=== PATIENT | female | born 1950 ===

== ENCOUNTER 2017-06-24 06:07 | Day surgery (SDC) | payer BC ==
[2017-06-20 18:25] VITALS: BMI 36.7
[2017-06-24] MEDS ORDERED: Lactated Ringer's 1,000 ML IV ONE (07:15)
[2017-06-24] MEDS ORDERED: Propofol 10 mg/ml Inj (20 ML) ONE (07:42)
[2017-06-24] MEDS ORDERED: Midazolam 2 MG/2 ML VIAL ONE (07:42)
[2017-06-24] MEDS ORDERED: Succinylcholine 200 mg/10 ml Inj IV ONE (07:45)
[2017-06-24] MEDS ORDERED: ceFAZolin IV 1 gm in Dextrose 2 GM/100 ML BAG IVPB ONE (07:49)
[2017-06-24] MEDS ORDERED: Lidocaine 1% Inj (20ml) ONE ×2 (07:49→08:17)
[2017-06-24] MEDS ORDERED: Bacitracin Ointment 30 GM TUBE ONE (07:50)
[2017-06-24] MEDS ORDERED: Lidocaine 1% Inj (20ml) IJ ONE (08:10)
[2017-06-24] MEDS ORDERED: MethylPREDNISolone Depo 40 mg/ml Inj ONE (08:16)
[2017-06-24] MEDS ORDERED: methylPREDNISolone Depo 80 mg/ml Inj ONE (08:39)
[2017-06-24] MEDS ORDERED: Bupivacaine 0.5% Inj(30mL) ONE (08:39)
[2017-06-24] MEDS ORDERED: Bupivacaine 0.5% Inj(30mL) IJ ONE (08:48)
[2017-06-24] MEDS ORDERED: methylPREDNISolone Depo 80 mg/ml Inj IM ONE (08:48)
[2017-06-24] MEDS ORDERED: Sodium Chloride 0.9% 500 ML IV ONE (08:55)
--- NOTE | 2017-06-24 09:07 | PCM.SURG1 ---
Surgeon's Initial Post Op Note - Surgeon's Notes Surgeon: Kashmir Louis MD Glove Tagger: Aneudy Calvert PA-C Type of Anesthesia: General LMA Pre-Operative Diagnosis: Right knee meniscus tear Operative Findings: see op report Post-Operative Diagnosis: Same as pre-op dx Operation Performed: Right knee arthroscopy, partial medial and lateral meniscectomy, synovectomy Specimen/Specimens Removed: none Estimated Blood Loss: EBL {In ML}: 3 Date of Surgery/Procedure: 06/24/17 Time of Surgery/Procedure: 08:00
[2017-06-24] MEDS ORDERED: Oxycodone/Acetaminophen 5/325 mg Tab PO PRN (09:08)
[2017-06-24] MEDS ORDERED: HYDROmorphone 0.5 mg/0.5 ml ISec IVP PRN (09:25)
[2017-06-24] MEDS ORDERED: Lactated Ringer's 1,000 ML IV SCH (09:30)
[2017-06-24] MEDS ORDERED: Dexamethasone 4 mg/1 ml IVP PRN (09:35)
[2017-06-24 10:42] VITALS: RESP 18
[2017-06-24 12:55] VITALS: TEMP 97.8
[2017-06-24 16:15] VITALS: BP 110/70; PULSE 78; O2SAT 97
--- NOTE | 2017-06-24 20:18 | OP ---
PROCEDURE DATE: 06/24/2017 ATTENDING PHYSICIAN: Kashmir Louis MD XEROX MACHINE ASSEMBLER: Aneudy Calvert PA-C. PREOPERATIVE DIAGNOSES: 1. Right knee displaced lateral meniscal tear. 2. Synovitis. 3. Chondral injury. POSTOPERATIVE DIAGNOSES: 1. Right knee major synovitis, all three compartments. 2. Tear of the posterior horn of medial meniscus. 3. Tear of the body, anterior horn, and posterior horn of lateral meniscus. 4. Anterior patellofemoral adhesions. 5. 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 6. Grade III chondromalacia of the patella. 7. 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 PROCEDURES: 1. Right partial medial and lateral meniscectomy. 2. Major synovectomy of all three compartments. 3. Chondroplasty of the patella, lateral tibial plateau, lateral femoral condyle. 4. Anterior lysis of adhesions. 5. Injection of the large joint. TYPE OF ANESTHESIA: General. ESTIMATED BLOOD LOSS: 5 mL. SPECIMEN: None. COMPLICATIONS: None. INDICATIONS: After failing a course of nonoperative therapy, the patient elected to undergo the above procedure. In the office, the risks and possible complications of knee arthroscopy were discussed in detail with the patient. These risks include but are not limited to continued pain, lack of motion, infection, vascular injury, DVT / PE, nerve injury including peroneal nerve dysfunction, reflex sympathetic dystrophy, compartment syndrome, unforeseen medical and/or anesthesia complications, limb loss, and even . The patient expressed an understanding of the risks and possible benefits of the procedure, and is also aware of the alternatives to surgery. An informed consent was obtained, and was checked immediately preop. PROCEDURE: The patient was correctly identified in the holding area and the right knee was marked with the surgeon's initials. The patient was transported to the operating room and placed in the supine position, general anesthesia was obtained. A preoperative orthopedic exam revealed effusion 1+, range of motion of 0 to 120, grade 1B Kailash 100. The lower extremity was prepped and draped in the standard fashion, and the thigh was placed in an arthroscopic leg crow. A well-padded tourniquet was applied to the patient's thigh. Timeout was completed confirming the correct operative site. Esmarch was used to exsanguinate the leg and tourniquet was inflated to 300 mmHg. A standard anterolateral viewing portals were made with a #11 blade after subdermal 1% lidocaine with epinephrine injection. The knee was distended with normal saline and epinephrine in a 1:1,000,000 mixture, at an initial pressure of 35 mmHg. The arthroscope was inserted from the anterolateral portal and moved into the medial compartment. Next, the anteromedial working portal was made with spinal needle localization. The arthroscopic probe was inserted, and all compartments of the knee were sequentially visualized. FINDINGS: Arthroscopic examination of the knee revealed: 1. Tear of the posterior horn, medial meniscus. 2. Major synovitis of all three compartments. 3. Tear of the lateral meniscus. 4. Anterior patellofemoral adhesions. 5. Grade IV chondromalacia of the lateral tibial plateau. 6. Grade III chondromalacia of the patella. 7. Grade II chondromalacia of the lateral femoral condyle. The anterior cruciate ligament and posterior cruciate ligament were inspected. There was partial tear of the anterior cruciate ligament. Partial medial meniscectomy was performed with a combination of hand instruments and a 4.0-mm motorized shaver. The meniscus was debrided to a smooth, stable border with an excursion of less than 3 mm. Partial lateral meniscectomy was performed with a combination of hand instruments and a 4.0-mm motorized shaver. The meniscus was debrided to a smooth, stable border with an excursion of less than 5 mm. The motorized shaver was used to mechanically debride the loose, fibrillated and fragmented chondral edges of the lateral tibial plateau, patella and lateral femoral condyle to a stable border. Extreme care was taken to not disrupt the adjacent chondral surface. The edges of injured chondral area were probed to ensure stability after the shaver was withdrawn from the knee. The motorized shaver was used to perform a synovectomy of the medial, lateral, and patellofemoral compartments. The hypertrophic synovium was resected with minimal bleeding. No synovial incarceration was noted after synovectomy when the knee was put through a full passive range of motion. Due to injuries to the patellofemoral region resulting in organized scar and suprapatellar adhesions, a decision was made to perform and anterior interval release to decrease the patellofemoral joint reaction force and relieve pressures over the patella and trochlea. The synovectomy was carried over to the suprapatellar pouch and an anterior interval release was performed over the anterior compartment and the suprapatellar pouch with the motorized shaver. The anterior fat pad was released and debulked during this procedure. The inflow was shut off and the area checked for hemostasis. Small bleeders were coagulated with the radiofrequency device. Finally, 1 mL of 40 mg Depo-Medrol mixed with 9 mL of 0.25% Marcaine was injected within the knee joint. Post operatively, the patient will be weight bearing as tolerated and will utilize my standard post arthroscopy rehab protocol. The patient will be started on straight leg raising and quadriceps setting exercises in the recovery room and will progress to prone hangs as well as prone knee flexion exercises using an active assisted construct. During this procedure, I was assisted by Aneudy Calvert PA-C, who assisted in positioning the patient on the operating room table as well as transferring the patient from the operating room table to the recovery room stretcher. In addition, Aneudy Calvert PA-C, assisted me during the actual operative procedure by positioning the patient's extremity to allow for easier arthroscopic access to all areas of the joint. The presence of Aneudy Calvert PA-C, as my operative physician assistant, was medically necessary to ensure the utmost safety of the patient in the pre, intra-, and postoperative periods. Kashmir Louis MD
== END 2017-06-24 16:15 | disposition home or self-care (01) ==
LOC: H.OPSURG 06:07
PROVIDERS: ATTEND Orthopaedic Surgery
DX: S83.8X1A Sprain of other specified parts of right knee, initial encounter (principal); S83.281A Other tear of lateral meniscus, current injury, right knee, initial encounter; S83.241A Other tear of medial meniscus, current injury, right knee, initial encounter; X58.XXXA Exposure to other specified factors, initial encounter; M94.261 Chondromalacia, right knee; M22.41 Chondromalacia patellae, right knee
CPT/HCPCS: 20610; 29876; 29880; 97116; 97161; G8978; G8979; G8980; J0171; J0330; J0690; J1030; J1040; J1100; J1170; J2001; J2250; J2405; J2704; J2765; J3010; J7030; J7040; J7120

== ENCOUNTER 2017-11-04 06:03 | Day surgery (SDC) | payer BC ==
[2017-10-30 10:13] VITALS: BMI 36.1
[2017-11-04] MEDS ORDERED: Bupivacaine 0.5% Inj(30mL) ONE (07:46)
[2017-11-04] MEDS ORDERED: EPINEPHrine 1 mg/ml (1:1000) Inj ONE (07:46)
[2017-11-04] MEDS ORDERED: Bacitracin Ointment 30 GM TUBE ONE (07:47)
[2017-11-04] MEDS ORDERED: MethylPREDNISolone Depo 40 mg/ml Inj ONE (07:47)
[2017-11-04] MEDS ORDERED: Lidocaine 2% w Epi 1:100,000 Inj IJ ONE (07:47)
--- NOTE | 2017-11-04 09:51 | PCM.SURG1 ---
Surgeon's Initial Post Op Note - Surgeon's Notes Surgeon: Kashmir Louis MD Prison Librarian: Aneudy Walker PA-C Type of Anesthesia: General Endo Pre-Operative Diagnosis: Right ankle synovitis, partial achilles tendon tear Operative Findings: see op report Post-Operative Diagnosis: same as pre-op dx Operation Performed: Right ankle arthroscopy, extensive debridement, synovectomy , open achilles tendon debridement, PRP injection of achilles tendon Specimen/Specimens Removed: none Estimated Blood Loss: EBL {In ML}: 5 Date of Surgery/Procedure: 11/04/17 Time of Surgery/Procedure: 08:00
[2017-11-04] MEDS ORDERED: Oxycodone/Acetaminophen 5/325 mg Tab PO PRN (09:53)
[2017-11-04] MEDS ORDERED: Lactated Ringer's 1,000 ML IV ONE ×3 (09:55→12:25)
[2017-11-04] MEDS ORDERED: HYDROmorphone 0.5 mg/0.5 ml ISec IVP PRN (10:00)
[2017-11-04 12:36] VITALS: RESP 18; O2SAT 97
[2017-11-04] MEDS ORDERED: Benzocaine/Menthol (Cepacol) Lozenge PO ONE ×2 (13:07→13:15)
[2017-11-04] MEDS ORDERED: Oxycodone/Acetaminophen 5/325 mg Tab PO ONE (13:20)
[2017-11-04 15:29] VITALS: TEMP 97.9
[2017-11-04 15:30] VITALS: BP 132/76; PULSE 89
--- NOTE | 2017-11-04 20:52 | OP ---
PROCEDURE DATE: 11/04/2017 PREOPERATIVE DIAGNOSES: 1. Right ankle synovitis. 2. Distal right ankle impingement. 3. Achilles tendonitis. 4. Calcaneal spur. POST OPERATIVE DIAGNOSES: 1. Right ankle synovitis. 2. Anterior talar impingement. 3. Adhesions of medial lateral gutter. 4. Achilles tendonitis. 5. Calcaneal spur. ATTENDING PHYSICIAN: Kashmir Louis MD ACCOUNTANT TAX: Aneudy Calvert PA-C TYPE OF ANESTHESIA: General. PROCEDURE: 1. Right ankle arthroscopy in a partial synovectomy. 2. Extensive arthroscopic debridement. 3. Arthroscopic decompression of patellar impingement. 4. Chondroplasty of the talus. 5. Open Achilles debridement. 6. Resection of the calcaneal spur. 7. Platelet-rich plasma injection. CPT: 0232T. EBL: 10 mL. SPECIMENS: None. TOURNIQUET TIME: 50 minutes. COMPLICATIONS: None. DRAINS: None. CLOSURE: Primary. FLUIDS: See anesthesia sheet. INDICATIONS: After failing a course of non-operative therapy, the patient elected to undergo the above procedure. In the office, the risks and possible complications of ankle arthroscopy were discussed in detail with the patient. These risks include but are not limited to continued pain, lack of motion, infection, vascular injury, DVT / PE, nerve injury including superficial peroneal nerve dysfunction, reflex sympathetic dystrophy, compartment syndrome, unforeseen medical and/or anesthesia complications, limb loss, and even . The patient expressed an understanding of the risks and possible benefits of the procedure, and is also aware of the alternatives to surgery. An informed consent was obtained, and was checked immediately pre-op. PROCEDURE: The patient was correctly identified in the holding area and the right ankle was marked with the surgeons initials. The patient was transported to the operating room and placed in the supine position, general anesthesia was obtained, a pre-operative orthopaedic exam revealed trace effusion, ankle dorsiflexion to neutral, plantar flexion to 30. No instability noted. The lower extremity was prepped and draped in the standard fashion. A well-padded tourniquet was applied to the patient's thigh. Time out was completed confirming the correct operative site. Esmarch was used to exsanguinate the leg and tourniquet was inflated to 300mmhg. A standard anteromedial viewing portals were made, medial to the tibialis anterior tendon with a #11 blade after sub-dermal 1% Lidocaine with Epinephrine injection. The ankle joint was distended with normal saline and epinephrine in a 1:1,000,000 mixture, at an initial pressure of 35mmHg. The arthroscope was inserted from the anteromedial portal and moved lateral to brendan the incision site for anterolateral portal. Extreme care was taken to protect the superficial peroneal nerve. Brendan was made just lateral to Peroneus tertius tendon. Using 11 blade, only superficial skin incision was made. Then, using the clamp, deep capsule was dissected and anterolateral portal was created using blunt dissection. The arthroscopic probe was inserted, and all compartments of the ankle were sequentially visualized. FINDINGS: Arthroscopic examination of the ankle revealed: 1. Extensive synovitis. 2. Adhesions of medial lateral gutters. 3. Grade 2 chondromalacia of the talus. 4. Anterior talar impingement. The motorized shaver was used to mechanically debride the loose, fibrillated and fragmented chondral edges of the talus to a stable border. Extreme care was taken to not disrupt the adjacent chondral surface. The edges of injured chondral area were probed to ensure stability after the shaver was withdrawn from the knee. The motorized shaver was used to perform a synovectomy of the medial and lateral compartment. The hypertrophic synovium was resected with minimal bleeding. No synovial incarceration was noted after synovectomy when the knee was put through a full passive range of motion. Due to injuries to the anterolateral region resulting in organized hypertrophic scar, inflamed synovium and bone spurs at the anterolateral edge of distal tibia causing impingement and pain, Using the motorized shaver, bone spurs was removed and inflamed/hypertrophic scar was also resected. Afterwards, ankle was taken through range of motion and a significant improvement in dorsiflexion was noted. The patient's Achilles synovitis and bone spur was addressed with the open Achilles debridement. A 4 cm incision was made distally centering of the Achilles tendon. Skin dissection was taken down until Achilles tendon was identified, a spilt incision was made along with fibers of Achilles tendon. The degenerative portions of fibre of Achilles tendon was removed using a fresh 10 blade and also fresh 10 blade and rongeur. For calcaneal spur, a small osteotome was used to remove the symptomatic spur, also using rongeur and curette. The excess bone was removed, the Achilles tendon was debride and irrigated and repaired with 0-Vicryl sutures. To promote healing, we also used a #0.62 K-wire to drill multiple holes in calcaneus. At the end of the procedure, the repair was augmented with platelet-rich plasma injection. A 15 mL of the patient's blood was aspirated, it was spun in a centrifuge to separate the 5 mL of PRP, which was injected at the end of the procedure. Post operatively, the patient will be nonweightbearing with crutches and will utilize my appropriate post arthroscopy protected rehab protocol. The patient will be started on straight leg raising and quadriceps setting exercises in the recovery room. During this procedure, I was assisted by Aneudy Calvert PA-C, who assisted in positioning the patient on the operating room table as well as transferring the patient from the operating room table to the recovery room stretcher. In addition, Aneudy Calvert PA-C, assisted me during the actual operative procedure by positioning the patient's extremity to allow for easier arthroscopic access to all areas of the joint. The presence Aneudy Calvert PA-C, as my operative assistant professor of german was medically necessary to ensure the utmost safety of the patient in the pre, intra-, and post-operative periods. Kashmir Louis MD
== END 2017-11-04 15:25 | disposition home or self-care (01) ==
LOC: H.OPSURG 06:03
PROVIDERS: ATTEND Orthopaedic Surgery
DX: M65.871 Other synovitis and tenosynovitis, right ankle and foot (principal); M25.871 Other specified joint disorders, right ankle and foot; M76.61 Achilles tendinitis, right leg; M77.31 Calcaneal spur, right foot
CPT/HCPCS: 29895; 29898; 97161; C1713; G8978; G8979; G8980; J0171; J0690; J2405; J7030; J7120